=== PATIENT | female | born 1990 | race Two or more races ===

== ENCOUNTER → 2023-08-12 | Day surgery (SDC) | payer OTHER ==
[~2023-08-12] VITALS: Ht 167.6 cm; Wt 65.8 kg
[~2023-08-12] MED LIST: KETOROLAC TROMETHAMINE 60 MG VIAL IM STA; POVIDONE-IODINE 118 ML BOTT TOP ONE; RINGERS SOLUTION,LACTATED 1,000 ML IV SCH
[2023-08-12 10:16] LABS: HEMATOCRIT 38.3 % (36.0-45.00); HEMOGLOBIN 12.7 g/dL (12.0-15.00); MEAN CELL VOLUME 85.1 fL (80.00-100.00); MEAN CORPUSCULAR HEMOGLOBIN 28.2 pg (27.00-32.0); MEAN CORPUSCULAR HGB CONC 33.1 g/dl (32.0-36.0); PLATELET COUNT 291 K/uL (150-450); RED CELL DISTRIBUTION WIDTH 14.6 % (11.5-14.5)
[2023-08-12 10:58] LABS: URINE APPEARANCE Clear; URINE BILIRRUBIN Negative (NEGATIVE); URINE BLOOD Large; URINE COLOR Yellow; URINE GLUCOSE Negative (NEGATIVE); URINE LEUKOCYTE Small; URINE NITRATE Negative; URINE PROTEIN 30 (NEGATIVE)
[2023-08-12 10:59] LABS: URINE BACTERIA 2619.4 uL (0.0-1933); URINE EPITHELIAL CELLS 33.3 uL (0.0-38.8); URINE RBC 26.8 uL (0.0-20.8); URINE WBC 88.5 uL (0.0-23.2)
[2023-08-12 11:03] LABS: CALCIUM 9.4 mg/dL (8.5-10.1); CREATININE SERUM 0.63 mg/dL (0.55-1.02); GFR 109.51; POTASSIUM 3.54 mEq/L (3.5-5.1)
[2023-08-12 11:19] LABS: INR 1.04; PROTHROMBIN TIME 10.9 SECONDS (9.0-11.5)
[2023-08-12 11:20] LABS: PARTIAL THROMBOPLASTIN TIME 30.2 SECONDS (22.0-34.0)
== END | disposition home or self-care (01) ==
LOC: ER 09:22 → CIR.AMB 10:18 → O/R 10:18 → CIR.AMB 10:18 → SEC-K 10:18 → O/R 12:30 → EDSTATUS 13:45 → O/R 21:40
PROVIDERS: ATTEND General Practice
DX: O02.1 Missed abortion (principal); O72.2 Delayed and secondary postpartum hemorrhage